=== PATIENT | female | born 1995 ===

== ENCOUNTER → 2021-01-30 12:42 | Outpatient (BNVA) | payer OTHER, SELFPAY | PROVIDERS: Visit Provider Physician Assistant | DX: E66.01 Morbid (severe) obesity due to excess calories (principal); Z68.41 Body mass index [BMI] 40.0-44.9, adult | CPT/HCPCS: 99202 ==

== ENCOUNTER → 2021-02-27 08:13 | Outpatient (BNVA) | payer OTHER, SELFPAY | PROVIDERS: Visit Provider Dietitian, Registered ==

== ENCOUNTER 2021-03-01 12:15 | Outpatient (REF) | payer OTHER, SELFPAY ==
--- NOTE | ~2021-03-01 | XR_ITS ---
EXAMINATION: XR CHEST CLINICAL INFORMATION: Moderate/severe obesity excess calories COMPARISON: None TECHNIQUE: 2 views of the chest were obtained. FINDINGS: No significant abnormality is noted involving the heart, lungs, mediastinum, bony thorax or soft tissues. XR/XR chest 2V IMPRESSION: Unremarkable chest exam.
--- NOTE | 2021-03-01 12:25 | ECG_ITS ---
Test Reason : OBESITY Blood Pressure : / mmHG Vent. Rate : 087 BPM Atrial Rate : 087 BPM P-R Int : 146 ms QRS Dur : 088 ms QT Int : 370 ms P-R-T Axes : 056 009 023 degrees QTc Int : 445 ms Normal sinus rhythm Minimal voltage criteria for LVH, may be normal variant Borderline ECG No previous ECGs available Referred By: Johanne Fontanez Electronically Signed By:RACHELE CADET MD
[2021-03-01 13:38] LABS: MANUAL DIFF FLAG NO
[2021-03-01 13:44] LABS: Basophils Percent Auto 0.2 % (0-2); Eosinophils Absolute Auto 0.1 X10*3/uL (0.0-0.4); Eosinophils Percent Auto 1.3 % (0-4); Hematocrit 36.1 % (37-47); Hemoglobin 11.3 g/dl (12.0-16.0); Imm Gran Abs Auto 0.05 X10*3/uL (0.00-0.03); Imm Gran Pct Auto 0.5 % (0.0-0.4); Lymphocytes Absolute Auto 2.6 X10*3/uL (1.2-4.9); Lymphocytes Percent Auto 26.8 % (20-40); Mean Corpuscular HGB Conc 31.3 g/dl (31.0-35.0); Mean Corpuscular Hemoglobin 25.1 pg (27.0-33.0); Mean Corpuscular Volume 80.2 fL (80-98); Mean Platelet Volume 11.3 fL (9.4-12.3); Monocytes Absolute Auto 0.6 X10*3/uL (0.1-1.2); Monocytes Percent Auto 6.6 % (2-11); Neutrophils Absolute Auto 6.3 X10*3/uL (2.0-8.3); Neutrophils Percent Auto 64.6 % (45-73); Platelet Count 253 X10*3/uL (160-400); Red Cell Distribution Width 16.5 % (11.0-16.0); White Blood Count 9.7 X10*3/uL (4.8-10.8)
[2021-03-01 14:54] LABS: Folate 14.7 ng/mL (> or = 4.0); Vitamin B12 441 pg/mL (200-900)
[2021-03-01 16:12] LABS: Estimated Average Glucose 100 mg/dL; Hemoglobin A1c % 5.1 %
[2021-03-01 16:47] LABS: TSH reflex Free T4 1.49 uIU/mL (0.32-4.0); Vitamin D 25-OH Total 12.7 ng/mL (>30)
[2021-03-01 16:54] LABS: Alanine Aminotransferase 13 U/L (0-31); Albumin Level 3.6 g/dL (3.5-5.0); Alkaline Phosphatase 123 U/L (39-117); Anion Gap 10 (12-20); Aspartate Amino Transferase 21 U/L (5-31); Bilirubin Total 0.3 mg/dL (0.0-1.0); Blood Urea Nitrogen 11 mg/dL (9-16); C Reactive Protein 4.68 mg/dL (< or = 0.50); Calcium 8.8 mg/dL (8.4-10.2); Carbon Dioxide 25 mmol/L (22-29); Chloride 107 mmol/L (96-108); Cholesterol 176 mg/dL; Estimated Glomerular Filt Rate > 60; Glucose Fasting 83 mg/dL (60-99); HDL Cholesterol 56 mg/dL; Iron 20 mcg/dL (30-160); LDL Cholesterol Calculated 100 mg/dl; Percent Iron Saturation 6 % (15-50); Sodium 138 mmol/L (135-145); Total Iron Binding Capacity 361 mcg/dL (228-428); Total Protein 7.3 g/dL (6.5-8.0); Triglycerides 100 mg/dL; Unsaturated Iron Binding 341 ug/dL
[2021-03-01 17:22] LABS: Ferritin 29 ng/mL (10-122)
[2021-03-02 13:06] LABS: Insulin Level Total 17.4 uIU/mL
[2021-03-02 15:11] LABS: H Pylori Breath Test NOT DETECTED (NOT DETECTED)
[2021-03-02 17:12] LABS: Calcium (PTHI) 8.6 mg/dL (8.6-10.2); PTHI 73 pg/mL (14-64)
[2021-03-03 16:46] LABS: Zinc 52 mcg/dL (60-130)
[2021-03-05 13:21] LABS: Vitamin B1 8 nmol/L (8-30)
[2021-03-06 15:27] LABS: Vitamin A 27 mcg/dL (38-98)
== END 2021-03-01 12:16 | disposition home or self-care (01) ==
LOC: HO.LAB 12:15
PROVIDERS: Visit Provider Physician Assistant
DX: E66.01 Morbid (severe) obesity due to excess calories (principal); R06.02 Shortness of breath
CPT/HCPCS: 36415; 71046; 80053; 80061; 82306; 82607; 82728; 82746; 83013; 83036; 83525; 83540; 83970; 84425; 84443; 84590; 84630; 85025; 86140; 93005; 99211

== ENCOUNTER → 2021-03-07 08:10 | Outpatient (BNVA) | payer OTHER, SELFPAY | PROVIDERS: Visit Provider Dietitian, Registered | DX: E66.01 Morbid (severe) obesity due to excess calories (principal) | CPT/HCPCS: 97802 ==

== ENCOUNTER → 2021-03-09 09:12 | Outpatient (BNVA) | payer OTHER, SELFPAY | PROVIDERS: Visit Provider Physician Assistant | DX: E66.01 Morbid (severe) obesity due to excess calories (principal); Z68.41 Body mass index [BMI] 40.0-44.9, adult | CPT/HCPCS: 99212 ==

== ENCOUNTER → 2021-04-14 08:13 | Outpatient (BNVA) | payer OTHER, SELFPAY | PROVIDERS: Visit Provider Dietitian, Registered | DX: E66.01 Morbid (severe) obesity due to excess calories (principal); Z68.41 Body mass index [BMI] 40.0-44.9, adult | CPT/HCPCS: 97803; 99212 ==

== ENCOUNTER → 2021-05-16 08:01 | Outpatient (BNVA) | payer OTHER, SELFPAY | PROVIDERS: Visit Provider Dietitian, Registered ==

== ENCOUNTER → 2021-06-28 12:46 | Outpatient (BNVA) | payer OTHER, SELFPAY | PROVIDERS: Visit Provider Physician Assistant Surgical | DX: E66.01 Morbid (severe) obesity due to excess calories (principal); Z68.41 Body mass index [BMI] 40.0-44.9, adult | CPT/HCPCS: 99212 ==

== ENCOUNTER 2021-12-26 09:56 | Outpatient (REF) | payer OTHER, SELFPAY ==
[2021-12-26 10:15] LABS: MANUAL DIFF FLAG NO
[2021-12-26 10:30] LABS: Basophils Percent Auto 0.2 % (0-2); Eosinophils Absolute Auto 0.2 X10*3/uL (0.0-0.4); Hematocrit 36.7 % (37.0-47.0); Hemoglobin 11.3 g/dl (12.0-16.0); Imm Gran Abs Auto 0.05 X10*3/uL (0.00-0.03); Imm Gran Pct Auto 0.5 % (0.0-0.4); Lymphocytes Absolute Auto 3.2 X10*3/uL (1.2-4.9); Lymphocytes Percent Auto 31.5 % (20-40); Mean Corpuscular HGB Conc 30.8 g/dl (31.0-35.0); Mean Corpuscular Hemoglobin 25.2 pg (27.0-33.0); Mean Corpuscular Volume 81.7 fL (80.0-98.0); Mean Platelet Volume 11.1 fL (9.4-12.3); Monocytes Absolute Auto 0.6 X10*3/uL (0.1-1.2); Monocytes Percent Auto 5.7 % (2-11); Neutrophils Absolute Auto 6.1 x10*3/uL (2.0-8.3); Neutrophils Percent Auto 60.1 % (45-73); Platelet Count 271 X10*3/uL (160-400); Red Blood Count 4.49 X10*6/uL (4.20-5.50); Red Cell Distribution Width 15.7 % (11.0-16.0); White Blood Count 10.1 X10*3/uL (4.8-10.8)
[2021-12-26 11:05] LABS: Alanine Aminotransferase 15 U/L (0-31); Albumin Level 3.7 g/dL (3.5-5.0); Alkaline Phosphatase 110 U/L (39-117); Anion Gap 9 (12-20); Aspartate Amino Transferase 17 U/L (5-31); Bilirubin Total 0.3 mg/dL (0.0-1.0); Blood Urea Nitrogen 11 mg/dL (9-16); Calcium 8.8 mg/dL (8.4-10.2); Carbon Dioxide 27 mmol/L (22-29); Chloride 107 mmol/L (96-108); Cholesterol 183 mg/dL; Estimated Glomerular Filt Rate > 60; Glucose Random 89 mg/dL (60-115); HDL Cholesterol 46 mg/dL; LDL Cholesterol Calculated 116 mg/dl; Potassium 4.1 mmol/L (3.3-5.1); Sodium 139 mmol/L (135-145); Total Protein 7.3 g/dL (6.5-8.0); Triglycerides 105 mg/dL
[2021-12-26 11:14] LABS: Thyroid Stimulating Hormone 1.47 uIU/mL (0.32-4.0)
== END 2021-12-26 09:57 | disposition home or self-care (01) ==
LOC: HO.LAB 09:56
PROVIDERS: PCP Internal Medicine; Visit Provider Internal Medicine
DX: E66.01 Morbid (severe) obesity due to excess calories (principal); I10 Essential (primary) hypertension
CPT/HCPCS: 36415; 80053; 80061; 84443; 85025

== ENCOUNTER → 2022-02-28 09:43 | Outpatient (BNVA) | payer OTHER, SELFPAY | PROVIDERS: PCP Internal Medicine; Visit Provider Physician Assistant Surgical | DX: E66.01 Morbid (severe) obesity due to excess calories (principal); Z68.41 Body mass index [BMI] 40.0-44.9, adult | CPT/HCPCS: 99211 ==

== ENCOUNTER → 2022-09-11 10:16 | Outpatient (BNVA) | payer MEDICAID, SELFPAY | PROVIDERS: PCP Internal Medicine; Referring Provider Internal Medicine; Visit Provider Physician Assistant Surgical | DX: Z11.0 Encounter for screening for intestinal infectious diseases (principal); E66.01 Morbid (severe) obesity due to excess calories; Z68.41 Body mass index [BMI] 40.0-44.9, adult | CPT/HCPCS: 83013; 99211; 99212 ==

== ENCOUNTER 2022-09-11 15:19 | Outpatient (REF) | payer MEDICAID, SELFPAY ==
[2022-09-14 14:47] LABS: H Pylori Breath Test Negative (Negative)
== END 2022-09-11 15:20 | disposition home or self-care (01) ==
LOC: HO.LNP 15:19
PROVIDERS: Visit Provider Physician Assistant Surgical
DX: E66.01 Morbid (severe) obesity due to excess calories (principal)
CPT/HCPCS: 83013

== ENCOUNTER 2022-10-01 12:00 | Outpatient (REF) | payer MEDICAID, SELFPAY ==
[2022-10-01 12:21] LABS: MANUAL DIFF FLAG NO
[2022-10-01 12:47] LABS: Basophils Percent Auto 0.2 % (0-2); Eosinophils Absolute Auto 0.1 X10*3/uL (0.0-0.4); Eosinophils Percent Auto 1.5 % (0-4); Hematocrit 38.8 % (37.0-47.0); Hemoglobin 12.2 g/dl (12.0-16.0); Imm Gran Abs Auto 0.01 X10*3/uL (0.00-0.03); Imm Gran Pct Auto 0.1 % (0.0-0.4); Lymphocytes Absolute Auto 3.9 X10*3/uL (1.2-4.9); Lymphocytes Percent Auto 44.7 % (20-40); Mean Corpuscular HGB Conc 31.4 g/dl (31.0-35.0); Mean Corpuscular Volume 82.6 fL (80.0-98.0); Monocytes Absolute Auto 0.5 X10*3/uL (0.1-1.2); Monocytes Percent Auto 5.9 % (2-11); Neutrophils Absolute Auto 4.1 x10*3/uL (2.0-8.3); Neutrophils Percent Auto 47.6 % (45-73); Platelet Count 249 X10*3/uL (160-400); Red Cell Distribution Width 14.2 % (11.0-16.0); White Blood Count 8.7 X10*3/uL (4.8-10.8)
[2022-10-01 13:19] LABS: Alanine Aminotransferase 15 U/L (0-31); Albumin Level 3.9 g/dL (3.5-5.0); Alkaline Phosphatase 109 U/L (39-117); Anion Gap 11 (12-20); Aspartate Amino Transferase 17 U/L (5-31); Bilirubin Total 0.4 mg/dL (0.0-1.0); Blood Urea Nitrogen 16 mg/dL (9-16); C Reactive Protein 1.75 mg/dL (< or = 0.50); Calcium 9.3 mg/dL (8.4-10.2); Carbon Dioxide 27 mmol/L (22-29); Chloride 104 mmol/L (96-108); Cholesterol 170 mg/dL; Estimated Glomerular Filt Rate > 60; Glucose Random 87 mg/dL (60-115); HDL Cholesterol 42 mg/dL; Iron 28 mcg/dL (30-160); LDL Cholesterol Calculated 108 mg/dl; Percent Iron Saturation 10 % (15-50); Potassium 4.1 mmol/L (3.3-5.1); Sodium 138 mmol/L (135-145); Total Iron Binding Capacity 285 mcg/dL (228-428); Total Protein 7.5 g/dL (6.5-8.0); Triglycerides 104 mg/dL; Unsaturated Iron Binding 257 ug/dL
[2022-10-01 13:22] LABS: Estimated Average Glucose 100 mg/dL; Hemoglobin A1c % 5.1 %
[2022-10-01 13:30] LABS: Ferritin 37 ng/mL (10-122); Insulin 12 uU/mL (2-29); TSH reflex Free T4 1.58 uIU/mL (0.32-4.0); Vitamin D 25-OH Total 13.8 ng/mL (>30)
[2022-10-01 13:46] LABS: Folate 9.6 ng/mL (> or = 4.0); Vitamin B12 724 pg/mL (200-900)
[2022-10-02 12:58] LABS: Calcium (PTHI) 9.2 mg/dL (8.6-10.2); PTHI 82 pg/mL (16-77)
[2022-10-05 17:47] LABS: Zinc 59 mcg/dL (60-130)
[2022-10-06 13:09] LABS: Vitamin B1 7 nmol/L (8-30)
[2022-10-06 17:43] LABS: Vitamin A 30 mcg/dL (38-98)
== END 2022-10-01 12:01 | disposition home or self-care (01) ==
LOC: HO.LAB 12:00
PROVIDERS: Visit Provider Physician Assistant Surgical
DX: E66.01 Morbid (severe) obesity due to excess calories (principal)
CPT/HCPCS: 36415; 80053; 80061; 82306; 82607; 82728; 82746; 83036; 83525; 83540; 83970; 84425; 84443; 84590; 84630; 85025; 86140

== ENCOUNTER → 2022-10-02 09:43 | Outpatient (BNVA) | payer MEDICAID, SELFPAY | PROVIDERS: PCP Internal Medicine; Visit Provider Physician Assistant Surgical | DX: E66.01 Morbid (severe) obesity due to excess calories (principal); Z68.41 Body mass index [BMI] 40.0-44.9, adult | CPT/HCPCS: 99212 ==

== ENCOUNTER → 2022-10-03 09:49 | Outpatient (BNVA) | payer MEDICAID, SELFPAY | PROVIDERS: PCP Internal Medicine; Referring Provider Physician Assistant Surgical; Visit Provider Dietitian, Registered | DX: E66.01 Morbid (severe) obesity due to excess calories (principal); Z68.41 Body mass index [BMI] 40.0-44.9, adult | CPT/HCPCS: 97802 ==

== ENCOUNTER 2022-12-15 22:35 | Emergency (ER) | payer MEDICAID, SELFPAY ==
--- NOTE | ~2022-12-15 | XR_ITS ---
EXAMINATION: XR CHEST CLINICAL INFORMATION: Cough COMPARISON: 03/01/2021 TECHNIQUE: 2 views of the chest were obtained. FINDINGS: The lungs are well expanded. There is no focal consolidation, edema, or effusion. No pneumothorax. The cardiomediastinal silhouette is within normal limits. No acute osseous abnormality. XR/XR chest 2V IMPRESSION: Clear lungs.
[2022-12-15 22:40] VITALS: BP 138/81; PULSE 134; RESP 20; TEMP 37.9; O2SAT 98; BMI 42.3
[2022-12-15 23:16] LABS: COVID-19 Test Negative (Negative); IDNOW Serial# 08D9AD1C; IDNOW Serial# BCCEAD1C; Influenza A Negative (Negative); Influenza B2 Negative (Negative)
--- NOTE | 2022-12-15 23:32 | ED.URI ---
HPI - URI/Sore Throat General Chief Complaint: Upper Respiratory Symptoms Stated Complaint: sore throat Time Seen by Provider: 12/15/22 23:25 Source: patient Mode of arrival: ambulatory Limitations: no limitations History of Present Illness HPI Narrative: Patient comes to the emergency room complaining of coughing and sore throat for 2 days, complaining of low-grade fever. Patient denies any sick contacts. Denies vomiting or diarrhea, no chest pain or shortness of breath. Related Data Home Medications Medication Instructions Recorded Confirmed ibuprofen 200 mg tablet (Advil) 200 mg PO Q6H PRN 01/30/21 10/02/22 Previous Rx's Medication Instructions Recorded cholecalciferol (vitamin D3) 125 125 mcg PO DAILY #90 caps 10/01/22 mcg (5,000 unit) capsule ferrous sulfate 324 mg (65 mg 324 mg PO DAILY #90 tabs 10/01/22 iron) tablet,delayed release thiamine HCl (vitamin B1) 100 mg 100 mg PO DAILY #90 tabs 10/08/22 tablet vitamin A palmitate 3,000 mcg 10,000 unit PO DAILY #90 caps 10/08/22 (10,000 unit) capsule zinc gluconate 10 mg lozenges 10 mg PO DAILY #100 ea 10/08/22 azithromycin 250 mg tablet 250 mg PO DAILY 4 days #4 tabs 12/15/22 Allergies Allergy/AdvReac Type Severity Reaction Status Date / Time Penicillins Allergy Severe Anaphylaxis Verified 10/02/22 09:56 Review of Systems Review of Systems: Constitutional : No Weight loss, No Fever, No Chills, No Night Sweats, No Fatigue, No Malaise ENT/Mouth : No Hearing loss, No Ear Pain, No Nasal Congestion, No Sinus Pain, No Hoarseness, complaining of sore throat, No Rhinorrhea, No Swallowing Difficulty Eyes: No Eye Pain, No Swelling, No Redness, No Foreign Body, No Discharge, No Vision Changes Cardiovascular : No Chest Pain, No SOB, No Dyspnea on Exertion, No Orthopnea, No Edema, No Palpitations Respiratory : Complaining of Cough, No Sputum, No Wheezing, No Smoke Exposure, No Dyspnea Gastrointestinal : No Nausea, No Vomiting, No Diarrhea, No Constipation, No abdominal Pain, No Hematochezia, No Melena Genitourinary : no irregular bleeding, No Dysuria, No Urinary Frequency, No Hematuria, No Urinary Incontinence, No Urgency, No Flank Pain, No Urinary Flow Changes, No Hesitancy Musculoskeletal : No joint pain, No Myalgias, No Joint Swelling Skin : No Skin Lesions, No rash Neuro : No Weakness, No Numbness, No Paresthesias, No Loss of Consciousness, No Dizziness, No Headache Psych : No Anxiety/Panic, No Depression, No SI/HI/AH/VH, No Social Issues, Heme/Lymph: No Bruising, No Bleeding,No Lymphadenopathy Endocrine : No Polyuria, No Polydipsia, No Temperature Intolerance [facility] Past Medical History Medical History BMI 40.0-44.9, adult Morbid obesity Vitamin A deficiency Vitamin B12 deficiency Vitamin D deficiency Surgical History Hx of section Family History Family History Mother No problems noted. Father No problems noted. Sister No problems noted. Sister No problems noted. Son No problems noted. Son No problems noted. Daughter No problems noted. Social History Social History Alcohol intake: former Patient Tobacco Use Status: Never used Tobacco Physical Exam Vital Signs: Vital Signs: Last Vital Signs Temp 100.3 F 12/15/22 22:40 Pulse 134 H 12/15/22 22:40 Resp 20 12/15/22 22:40 BP 138/81 12/15/22 22:40 Pulse Ox 98 12/15/22 22:40 O2 Del Method Room Air 12/15/22 22:40 BMI result Body Mass Index 42.3 Const: Other: Appearance: Alert. Oriented X3. No acute distress. Eyes: Pupils equal, round and reactive to light. ENT: Erythematous oropharynx , no exudates, no visualized abscess is Neck: Normal inspection. Neck supple. No lymph nodes noted. No crepitus CVS: Normal heart rate and rhythm. Pulses normal. Normal S1 and S2 Respiratory: No respiratory distress. Breath sounds normal. No Wheezing. No rales Abdomen: Soft and nontender. No rigidity. No distention. Skin: Skin warm and dry. Normal skin color. Normal skin turgor. Extremities: No lower extremity edema. No Lacerations. No Rash Neuro: Oriented X 3. No motor deficit. No sensory deficit. Moving all extremities. No slurred speech. CN 2 through 12 grossly intact Psych: calm, cooperative, normal affect Medical Decision Making Medical Decision Making [facility] Narrative: -patient tested negative for influenza and COVID. Chest x-ray clear, no infiltrates. -Monospot test and rapid strep test pending. -patient tested positive for strep. Patient was given the 1st dose of antibiotics in the emergency room, patient has anaphylaxis penicillin, given azithromycin. Also for symptomatic relief, given p.o. Decadron and viscous lidocaine. Differential Diagnosis Differential Diagnoses: The differential diagnosis associated with the presentation includes (COVID, influenza, strep, viral pharyngitis) Lab Data [facility] Lab Attestation statement: I reviewed the patient's lab results. Labs: Lab Results 12/15/22 12/15/22 12/15/22 Range/Units 22:53 22:53 23:36 COVID-19 (RACHEAL) Negative (Negative) COVID-19 Clin Com See Note Influenza Type A (SOURAV) Negative (Negative) Influenza Type B (SOURAV) Negative (Negative) Influenza A & B Note See Note S. pyogenes GrpA SOURAV Positive A (Negative) Independent Interpretation I performed an independent interpretation of an: Plain X-Ray (Interpretation of chest x-ray: No pneumonia) Radiology Impression Discussion of test interpretation with radiology: I have reviewed the radiologist's reading. Radiologist Impression: FINDINGS: The lungs are well expanded. There is no focal consolidation, edema, or effusion. No pneumothorax. The cardiomediastinal silhouette is within normal limits. No acute osseous abnormality. XR/XR chest 2V IMPRESSION: Clear lungs. ? Discharge Plan Discharge Clinical Impression: Acute streptococcal pharyngitis Patient Disposition: Home, Self-Care Instructions: Strep Throat (ED) Additional Instructions: Please follow-up with your primary care physician tomorrow. If you have any worsening or new symptoms, please return to the emergency room or call 911 Prescriptions: New azithromycin 250 mg tablet 250 mg PO DAILY 4 Days Qty: 4 0RF Rx Instructions: start on day 2 of therapy No Action cholecalciferol (vitamin D3) 125 mcg (5,000 unit) capsule 125 mcg PO DAILY Qty: 90 1RF ferrous sulfate 324 mg (65 mg iron) tablet,delayed release (DR/EC) 324 mg PO DAILY Qty: 90 2RF thiamine HCl (vitamin B1) 100 mg tablet 100 mg PO DAILY Qty: 90 0RF vitamin A palmitate 10,000 unit capsule 10,000 unit PO DAILY Qty: 90 0RF zinc gluconate 10 mg lozenge 10 mg PO DAILY Qty: 100 0RF ibuprofen [Advil] 200 mg tablet 200 mg PO Q6H PRN Stand Alone Forms: Work/School Release
[2022-12-15 23:47] LABS: IDNOW Serial# 6674DD1D; Strep A Nucleic Acid Positive (Negative)
[2022-12-15] MEDS: dexAMETHasone 4 MG TABLET PO (23:59)
[2022-12-15] MEDS: Azithromycin 500 MG TABLET PO (23:59)
[2022-12-16] MEDS: Lidocaine HCl Viscous 2 % 15 ML SOLUTION MUCOUS MEM
[2022-12-16 00:02] LABS: Monotest Negative (Negative)
[2022-12-16 00:08] VITALS: BP 126/62; PULSE 106; RESP 18; TEMP 37.2; O2SAT 97
== END 2022-12-16 00:11 | disposition home or self-care (01) ==
LOC: HO.ED 12-16 00:06
PROVIDERS: Physician Assistant; Emergency Provider Emergency Medicine; PCP Internal Medicine
DX: J02.0 Streptococcal pharyngitis (principal); R05.9 Cough, unspecified; R50.9 Fever, unspecified; Z79.899 Other long term (current) drug therapy; Z20.822 Contact with and (suspected) exposure to COVID-19; Z20.828 Contact with and (suspected) exposure to other viral communicable diseases
CPT/HCPCS: 36415; 71046; 86308; 87502; 87635; 87651; 99284; J8540

== ENCOUNTER 2023-12-13 18:01 | Emergency (ER) | payer OTHER, SELFPAY ==
--- NOTE | ~2023-12-13 | CT_ITS ---
EXAMINATION: CT ABDOMEN AND PELVIS WITH CONTRAST CLINICAL INFORMATION: Right upper quadrant and right lower quadrant tenderness. COMPARISON: None available. TECHNIQUE: Multidetector volumetric images were obtained from the superior aspect of the liver through the pubic symphysis following administration 85 mL of Omnipaque 350 intravenous contrast. Sagittal and coronal reformatted images were obtained on the technologist's workstation. Oral contrast: No This CT examination was performed using dose optimization techniques as appropriate, variously including the following: *Automated exposure control *Adjustment of mA and/or kV according to patient size (this includes techniques or standardized protocols for targeted exams where dose is matched to indication/reason for exam; i.e. extremities or head) *Use of iterative reconstruction technique DLP: 1202 mGy-cm FINDINGS: LUNG BASES: The visualized lung bases are unremarkable. LIVER, GALLBLADDER, AND BILIARY TREE: The liver is of mild diminished attenuation and enlarged measuring up to 22 cm. No focal liver lesions are seen. There is no intrahepatic biliary duct dilatation. The gallbladder is unremarkable with no evidence of radiopaque gallstones, gallbladder wall thickening, or obvious pericholecystic inflammatory changes. PANCREAS: Unremarkable. SPLEEN: Unremarkable. ADRENAL GLANDS: Unremarkable. KIDNEYS AND URETERS: The kidneys are normal in size, shape, and attenuation. No hydronephrosis, hydroureter, or calculi seen. No perinephric stranding. BLADDER: Unremarkable. GASTROINTESTINAL TRACT: The small and large bowel are unremarkable. The appendix is unremarkable. ABDOMINAL WALL: No significant hernia is appreciated. LYMPH NODES: Normal. VASCULAR: Unremarkable. PELVIC VISCERA: Unremarkable. OSSEOUS STRUCTURES: Unremarkable. CT/CT abdomen pelvis w IV con IMPRESSION: Enlarged fatty liver. No other significant abnormality identified. Fleischner guidelines were followed.
[2023-12-13 18:23] VITALS: BP 149/78; PULSE 84; RESP 14; TEMP 37.1; BMI 40.9
--- NOTE | 2023-12-13 18:25 | ED_ITS ---
HPI - Abdominal Pain General Chief Complaint: Abdominal Pain Stated Complaint: stomach pain since saturday Time Seen by Provider: 12/13/23 21:16 History of Present Illness HPI narrative: The patient is a 28-year-old woman who has been having abdominal pain for about 5 or 6 days. She says it all started after she ate a fish leopoldo last Saturday. She says that since then she has had generalized abdominal pains which wax and wane also feels that she has not been able to have a bowel movement. She does not know if she has had a fever. No significant nausea or vomiting. Related Data Home Medications Medication Instructions Recorded Confirmed ibuprofen 200 mg tablet (Advil) 200 mg PO Q6H PRN 01/30/21 10/02/22 Previous Rx's Medication Instructions Recorded cholecalciferol (vitamin D3) 125 125 mcg PO DAILY #90 caps 10/01/22 mcg (5,000 unit) capsule ferrous sulfate 324 mg (65 mg 324 mg PO DAILY #90 tabs 10/01/22 iron) tablet,delayed release thiamine HCl (vitamin B1) 100 mg 100 mg PO DAILY #90 tabs 10/08/22 tablet vitamin A palmitate 3,000 mcg 10,000 unit PO DAILY #90 caps 10/08/22 (10,000 unit) capsule zinc gluconate 10 mg lozenges 10 mg PO DAILY #100 ea 10/08/22 azithromycin 250 mg tablet 250 mg PO DAILY 4 days #4 tabs 12/15/22 omeprazole 40 mg capsule,delayed 40 mg PO DAILY #30 caps 12/14/23 release Allergies Allergy/AdvReac Type Severity Reaction Status Date / Time Penicillins Allergy Severe Anaphylaxis Verified 10/02/22 09:56 Review of Systems Review of Systems Yes all other systems are reviewed and are negative [facility] Past Medical History Medical History BMI 40.0-44.9, adult Morbid obesity Vitamin A deficiency Vitamin B12 deficiency Vitamin D deficiency Surgical History Hx of section Family History Family History Mother No problems noted. Father No problems noted. Sister No problems noted. Sister No problems noted. Son No problems noted. Son No problems noted. Daughter No problems noted. Social History Social History Alcohol intake: former Patient Tobacco Use Status: Never used Tobacco Physical Exam ED Vital Signs: Vital Signs - 24 hr 12/13/23 18:23 12/13/23 21:25 12/13/23 23:58 Temperature 98.7 F 98.2 F 98.2 F Pulse Rate 84 83 96 Respiratory Rate 14 18 18 Blood Pressure 149/78 H 142/81 H 141/77 H Pulse Oximetry 98 99 Oxygen Delivery Method Room Air Room Air Room Air 12/14/23 01:08 Temperature 98.2 F Pulse Rate 96 Respiratory Rate 18 Blood Pressure 141/77 H Pulse Oximetry 99 Oxygen Delivery Method Room Air BMI result Body Mass Index 40.9 Const Other: The patient is awake, alert, pleasant, cooperative. She looks mildly uncomfortable but not acutely toxic. HENMT Other: Face is symmetrical. Mucous membranes moist. Eyes Other: Pupils are round equal, conjunctivae are clear, extraocular movements intact Neck Other: Moving the neck easily Resp Effort & Inspection: normal respiratory effort Auscultation: clear to auscultation bilaterally Cardio Rate: regular rate Rhythm: regular rhythm Heart sounds: S1 normal heart sound present and S2 normal heart sound present GI Other: Right lower and right upper quadrant tenderness. No definite rebound but there seemed to be some subtle guarding. General: Yes no CVA tenderness Back/Spine/Pelvis Back: no CVA tenderness Skin Other: Skin is dry and unremarkable Neuro Other: The patient is awake, alert, pleasant, cooperative. Speech is clear, face is symmetrical, she moves extremities symmetrically, she seems grossly neurologically intact. Extrem Other: No calf swelling or tenderness, Course Course Course Narrative: This is a rapid medical exam: Additional HPI, ROS, PE not included below will be deferred to primary provider. Abdominal pain since Saturday after eating. Reports difficulty with moving her bowels with no bowel movements since Saturday. Medical Decision Making Medical Decision Making [facility] Narrative: The patient is a very pleasant 28-year-old who presents with about 5 or 6 days of abdominal pain fairly tender on exam. The patient had a slightly elevated white count. Chemistries show an unremarkable basic metabolic panel and liver function. CRP mildly elevated. A CT scan of the abdomen and pelvis shows an enlarged fatty liver but no acute findings. The patient was treated symptomatically. She seemed to feel better. She looked well. She will be discharged instructions to follow up with her regular doctor or return if worse. She was prescribed omeprazole. Lab Data 12/13/23 18:53 12/13/23 18:53 Labs: Lab Results 12/13/23 Range/Units 18:53 WBC 12.4 H (4.8-10.8) X10*3/uL RBC 4.87 (4.20-5.50) X10*6/uL Hgb 12.9 (12.0-16.0) g/dl Hct 40.1 (37.0-47.0) % MCV 82.3 (80.0-98.0) fL MCH 26.5 L (27.0-33.0) pg MCHC 32.2 (31.0-35.0) g/dl RDW 15.1 (11.0-16.0) % Plt Count 305 (160-400) X10*3/uL MPV 11.0 (9.4-12.3) fL Immature Gran % (Auto) 0.3 (0.0-0.4) % Neut % (Auto) 54.9 (45-73) % Lymph % (Auto) 35.5 (20-40) % [place] % (Auto) 7.5 (2-11) % Eos % (Auto) 1.5 (0-4) % Baso % (Auto) 0.3 (0-2) % Lymph # (Auto) 4.4 (1.2-4.9) X10*3/uL [place] # (Auto) 0.9 (0.1-1.2) X10*3/uL Eos # (Auto) 0.2 (0.0-0.4) X10*3/uL Baso # (Auto) 0.0 (0.0-0.2) X10*3/uL Abs Immat Gran (auto) 0.04 H (0.00-0.03) X10*3/uL Absolute Neuts (auto) 6.8 (2.0-8.3) x10*3/uL Absolute Nucleated RBC 0.000 (0.0-0.012) X10*3/uL Nucleated RBC % (auto) 0.0 (0.0-0.2) /100WBC Sodium 139 (135-145) mmol/L Potassium 4.0 (3.3-5.1) mmol/L Chloride 102 (96-108) mmol/L Carbon Dioxide 28 (22-29) mmol/L Anion Gap 13 (12-20) BUN 11 (9-16) mg/dL Creatinine 0.79 (0.5-1.4) mg/dL Estim Creat Clear Calc 129.5 Estimated GFR > 60 Random Glucose 100 (60-115) mg/dL Calcium 9.2 (8.4-10.2) mg/dL Magnesium 1.9 (1.6-2.6) mg/dL Total Bilirubin 0.3 (0.0-1.0) mg/dL AST 28 (5-31) U/L ALT 28 (0-31) U/L Alkaline Phosphatase 129 H (39-117) U/L C-Reactive Protein 4.02 H (< or = 0.50) mg/dL Total Protein 8.4 H (6.5-8.0) g/dL Albumin 3.9 (3.5-5.0) g/dL Beta HCG, Quant < 2 mIU/mL Urine Color Yellow Urine Appearance Clear Urine pH 8.0 (5.0-9.0) Ur Specific [place] 1.025 (1.005-1.025) Urine Protein Negative (Neg-Trace) mg/dL Urine Glucose (UA) Negative (Negative) mg/dL Urine Ketones Trace (Negative) mg/dL Urine Blood Negative (Negative) Urine Nitrite Negative (Negative) Ur Leukocyte Esterase Negative (Negative) Urine RBC 0-2 (0-2) /HPF Urine WBC 0-5 (0-5) /HPF Ur Squamous Epith Cells 0-2 (0-2) /HPF Urine Bacteria None Seen (None Seen) Hyaline Casts 0-2 (0-2) /LPF Influenza Type A (PCR) NEGATIVE (Negative) Influenza Type B (PCR) NEGATIVE (Negative) RSV RNA Qual (PCR) NEGATIVE (Negative) SARS-CoV-2 RNA (RT-PCR) NEGATIVE (Negative) Medications Administered Discontinued Medications Generic Name Dose Route Start Last Admin Trade Name Freq PRN Reason Stop Dose Admin Famotidine 20 mg 12/13/23 21:21 12/13/23 21:41 Famotidine/Pf 20 Mg/2 Ml Vial IVPUSH 12/13/23 21:22 20 mg ONCE ONE Administration Sodium Chloride 1,000 mls @ 999 mls/hr 12/13/23 21:30 12/13/23 22:43 Ns IV 12/13/23 22:30 Infused .Q1H1M CURLY Infusion Iohexol 100 ml 12/13/23 22:18 12/13/23 22:18 Iohexol 350 Mg/Ml 100 Ml Infus..Btl IV 12/13/23 22:19 85 ml ONCE ONE Administration Discharge Plan Discharge Clinical Impression: Abdominal pain Patient Disposition: Home, Self-Care Instructions: Gastritis (ED) Additional Instructions: Your testing in the emergency room today does not show any acutely dangerous process. I suspect your pain may be coming from irritation from stomach acid. We call this condition gastritis. Please read the accompanying information. I have sent a prescription for medication called omeprazole to your pharmacy. This medication helps reduce stomach acid production. I hope this will help your symptoms. Please keep your upcoming appointment with your new doctor. Return to the emergency room if significantly worse. Prescriptions: New omeprazole 40 mg capsule,delayed release(DR/EC) 40 mg PO DAILY Qty: 30 0RF No Action cholecalciferol (vitamin D3) 125 mcg (5,000 unit) capsule 125 mcg PO DAILY Qty: 90 1RF ferrous sulfate 324 mg (65 mg iron) tablet,delayed release (DR/EC) 324 mg PO DAILY Qty: 90 2RF thiamine HCl (vitamin B1) 100 mg tablet 100 mg PO DAILY Qty: 90 0RF vitamin A palmitate 10,000 unit capsule 10,000 unit PO DAILY Qty: 90 0RF zinc gluconate 10 mg lozenge 10 mg PO DAILY Qty: 100 0RF azithromycin 250 mg tablet 250 mg PO DAILY 4 Days Qty: 4 0RF Rx Instructions: start on day 2 of therapy ibuprofen [Advil] 200 mg tablet 200 mg PO Q6H PRN Referrals: Julieta Rivera MD [Physician] - (gastritis) Interventions: ED Discharge Assessment Last Done: 12/14/23 01:08 Discharge Date/Time: 12/14/23 01:17
[2023-12-13 19:03] LABS: MANUAL DIFF FLAG NO
[2023-12-13 19:05] LABS: Basophils Percent Auto 0.3 % (0-2); Eosinophils Absolute Auto 0.2 X10*3/uL (0.0-0.4); Eosinophils Percent Auto 1.5 % (0-4); Hematocrit 40.1 % (37.0-47.0); Hemoglobin 12.9 g/dl (12.0-16.0); Imm Gran Abs Auto 0.04 X10*3/uL (0.00-0.03); Imm Gran Pct Auto 0.3 % (0.0-0.4); Lymphocytes Absolute Auto 4.4 X10*3/uL (1.2-4.9); Lymphocytes Percent Auto 35.5 % (20-40); Mean Corpuscular HGB Conc 32.2 g/dl (31.0-35.0); Mean Corpuscular Hemoglobin 26.5 pg (27.0-33.0); Mean Corpuscular Volume 82.3 fL (80.0-98.0); Monocytes Absolute Auto 0.9 X10*3/uL (0.1-1.2); Monocytes Percent Auto 7.5 % (2-11); Neutrophils Absolute Auto 6.8 x10*3/uL (2.0-8.3); Neutrophils Percent Auto 54.9 % (45-73); Platelet Count 305 X10*3/uL (160-400); Red Blood Count 4.87 X10*6/uL (4.20-5.50); Red Cell Distribution Width 15.1 % (11.0-16.0); White Blood Count 12.4 X10*3/uL (4.8-10.8)
[2023-12-13 19:07] LABS: Appearance Urine Clear; Color Urine Yellow; Glucose Urine UA Negative (Negative); Leukocyte Esterase Urine Negative (Negative); Nitrite Urine Negative (Negative); Specific Gravity - Urine 1.025 (1.005-1.025); Urine Blood Negative (Negative); Urine Ketones Trace mg/dL (Negative); Urine Protein Negative (Neg-Trace)
--- NOTE | 2023-12-13 19:07 | MHC.EDTECH ---
PATIENT BLOOD DRAWN ,URINE SAMPLE COLLECTED AND RSV/COVID SWAB COLLECTED AND ALL SENT TO LAB .
[2023-12-13 19:09] LABS: Bacteria Urine None Seen (None Seen); Hyaline Casts Urine 0-2 /LPF (0-2); RBC Urine 0-2 /HPF (0-2); Squamous Epithelial Cell Urine 0-2 /HPF (0-2); WBC Urine 0-5 /HPF (0-5)
[2023-12-13 19:18] LABS: Alanine Aminotransferase 28 U/L (0-31); Albumin Level 3.9 g/dL (3.5-5.0); Alkaline Phosphatase 129 U/L (39-117); Anion Gap 13 (12-20); Aspartate Amino Transferase 28 U/L (5-31); Bilirubin Total 0.3 mg/dL (0.0-1.0); Blood Urea Nitrogen 11 mg/dL (9-16); Calcium 9.2 mg/dL (8.4-10.2); Carbon Dioxide 28 mmol/L (22-29); Chloride 102 mmol/L (96-108); Creatinine Clr Calc Pharmacy 129.5; Estimated Glomerular Filt Rate > 60; Glucose Random 100 mg/dL (60-115); Magnesium 1.9 mg/dL (1.6-2.6); Sodium 139 mmol/L (135-145); Total Protein 8.4 g/dL (6.5-8.0)
[2023-12-13 19:43] LABS: Influenza A PCR NEGATIVE (Negative); Influenza B PCR NEGATIVE (Negative); Resp Syncy Virus RNA Qual PCR NEGATIVE (Negative); SARS COV2 PCR INHOUSE NEGATIVE (Negative)
[2023-12-13 21:25] VITALS: BP 142/81; PULSE 83; RESP 18; TEMP 36.8; O2SAT 98
[2023-12-13] MEDS: Famotidine/PF 20 MG/2 ML VIAL IVPUSH (21:41)
[2023-12-13] MEDS: 0.9 % Sodium Chloride 1,000 ML 999 ML IV (21:42)
[2023-12-13 21:52] LABS: C Reactive Protein 4.02 mg/dL (< or = 0.50)
[2023-12-13 21:55] LABS: HCG Quantitative < 2 mIU/mL
[2023-12-13] MEDS: iohexoL 350 MG/ML 100 ML INFUS..BTL IV (22:18)
[2023-12-13 23:58] VITALS: BP 141/77; PULSE 96; RESP 18; TEMP 36.8; O2SAT 99
--- NOTE | 2023-12-13 23:59 | MHC.EDTECH ---
This tech took over care of patient at 2300,hourly rounds completed,patient is resting comfortably at this time call caro in reach
[2023-12-14 01:08] VITALS: BP 141/77; PULSE 96; RESP 18; TEMP 36.8; O2SAT 99
== END 2023-12-14 01:17 | disposition home or self-care (01) ==
PROVIDERS: Nurse Practitioner Family; Emergency Provider Emergency Medicine
DX: R10.9 Unspecified abdominal pain (principal); Z11.52 Encounter for screening for COVID-19; Z20.828 Contact with and (suspected) exposure to other viral communicable diseases
CPT/HCPCS: 0241U; 36415; 74177; 80053; 81001; 83735; 84702; 85025; 86140; 96361; 96374; 99284; Q9967

== ENCOUNTER → 2023-12-17 10:37 | Outpatient (BNVA) | payer OTHER, SELFPAY | PROVIDERS: Visit Provider Surgery ==

== ENCOUNTER 2024-02-17 16:07 | Emergency (ER) | payer OTHER, SELFPAY ==
[2024-02-17 16:19] VITALS: BP 149/84; PULSE 97; RESP 20; TEMP 36.6; O2SAT 99; BMI 44.6
--- NOTE | 2024-02-17 16:21 | ED_ITS ---
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 She denies any drainage, increased pain or other complications. complaint: suture removal Onset (ago): day(s) Location: left and upper extremity Treatments prior to arrival: none Related Data Home Medications ?Medication ?Instructions ?Recorded ?Confirmed ibuprofen 200 mg tablet (Advil) 200 mg PO Q6H PRN 01/30/21 10/02/22 Previous Rx's ?Medication ?Instructions ?Recorded cholecalciferol (vitamin D3) 125 125 mcg PO DAILY #90 caps 10/01/22 mcg (5,000 unit) capsule ferrous sulfate 324 mg (65 mg 324 mg PO DAILY #90 tabs 10/01/22 iron) tablet,delayed release thiamine HCl (vitamin B1) 100 mg 100 mg PO DAILY #90 tabs 10/08/22 tablet vitamin A palmitate 3,000 mcg 10,000 unit PO DAILY #90 caps 10/08/22 (10,000 unit) capsule zinc gluconate 10 mg lozenges 10 mg PO DAILY #100 ea 10/08/22 azithromycin 250 mg tablet 250 mg PO DAILY 4 days #4 tabs 12/15/22 omeprazole 40 mg capsule,delayed 40 mg PO DAILY #30 caps 12/14/23 release Allergies Allergy/AdvReac Type Severity Reaction Status Date / Time Penicillins Allergy Severe Anaphylaxis Verified 02/17/24 16:22 Review of Systems Review of Systems: As per HPI Yes all other systems are reviewed and are negative Constitutional: Constitutional: Reports as per HPI [facility] Past Medical History Medical History BMI 40.0-44.9, adult Morbid obesity Vitamin A deficiency Vitamin B12 deficiency Vitamin D deficiency Surgical History Hx of section Family History Family History Mother No problems noted. Father No problems noted. Sister No problems noted. Sister No problems noted. Son No problems noted. Son No problems noted. Daughter No problems noted. Social History Social History Alcohol intake: former Patient Tobacco Use Status: Never used Tobacco Physical Exam ED Vital Signs: Vital signs have been reviewed and appear to be correct. Blood pressure normal. Heart rate normal. Respiratory rate normal. Temperature normal. Oxygen saturation normal. Const General: cooperative, healthy appearing and no acute distress Orientation/consciousness: oriented to person, oriented to place, oriented to time and patient oriented x3 Limitations: no limitations HENMT Head: Yes normocephalic and Yes atraumatic Ears: external ears normal General nose exam: Normal external nose present Face and sinus: Yes face symmetric Mouth: oropharynx normal and moist mucous membranes Throat: Yes uvula midline Eyes Pupils: Equal, round and reactive pupils present Neck Neck: Yes normal visual inspection and Yes supple Resp Effort & Inspection: normal respiratory effort and able to speak in complete sentences Auscultation: clear to auscultation bilaterally Cardio Rate: regular rate Rhythm: regular rhythm Heart sounds: S1 normal heart sound present and S2 normal heart sound present Skin General skin exam: elasticity normal and turgor normal Neuro General: oriented to person, oriented to place, oriented to time, patient oriented x3, moves all extremities, no focal motor deficits and CN's II-XI intact bilaterally Cranial nerves: Yes Equal, round and reactive pupils present Cognition (Neuro): normal cognition Extrem General: Yes full ROM, Yes no pedal edema and Yes no calf tenderness Left upper extremity: hand (5 sutures to palmar aspect of 3rd finger, wound appears well-healing) Details: normal capillary refill, neuromotor exam normal, neurosensory exam normal and normal ROM of fingers Psych Mental Status: mental status grossly normal Affect: normal affect Thought process: Normal thought process present Medical Decision Making Medical Decision Making MDM Narrative: Patient is a 28-year-old English-speaking female presenting to the emergency department for removal of sutures placed to left 3rd finger at [facility] on 02/05. On exam patient is awake, A+Ox3, VS WNL, afebrile, normal neurological exam without focal deficits, physical exam findings as above. Given reported symptoms and physical exam findings, initial differential includes suture removal. #5 sutures removed from left 3rd finger without difficulty with success, wound appears well-healing. Advised patient to continue keeping the area covered with Band-Aid until fully healed and to avoid submerging in water. Return precautions discussed. Patient advised to assess wound daily. Patient verbalized understanding of and agreement with plan. Differential Diagnosis Differential Diagnoses: The differential diagnosis associated with the presentation includes suture removal, impaired wound healing, cellulitis External Record Review External record reviewed: Inpatient record, Office record and Outpatient record Discharge Plan Discharge Clinical Impression: Encounter for removal of sutures Patient Disposition: Home, Self-Care Instructions: Stitches Removal (ED) Additional Instructions: You were seen in the emergency department today for suture removal. Your wound appears to be healing well. Please keep the area surrounding the wound clean and dry and cover with Band-Aid until fully healed. Do not submerge in water until fully healed. Please continue to assess the wound daily. Keep the area out of direct sunlight for the next 6 months to help prevent scarring. If you develop fever, redness, swelling at the site of your laceration, or thick yellow drainage please come back to the ER for a wound check. Prescriptions: No Action cholecalciferol (vitamin D3) 125 mcg (5,000 unit) capsule 125 mcg PO DAILY Qty: 90 1RF ferrous sulfate 324 mg (65 mg iron) tablet,delayed release (DR/EC) 324 mg PO DAILY Qty: 90 2RF thiamine HCl (vitamin B1) 100 mg tablet 100 mg PO DAILY Qty: 90 0RF vitamin A palmitate 10,000 unit capsule 10,000 unit PO DAILY Qty: 90 0RF zinc gluconate 10 mg lozenge 10 mg PO DAILY Qty: 100 0RF azithromycin 250 mg tablet 250 mg PO DAILY 4 Days Qty: 4 0RF Rx Instructions: start on day 2 of therapy omeprazole 40 mg capsule,delayed release(DR/EC) 40 mg PO DAILY Qty: 30 0RF ibuprofen [Advil] 200 mg tablet 200 mg PO Q6H PRN Print Language: English
[2024-02-17 16:54] VITALS: BP 149/84; PULSE 97; RESP 20; TEMP 36.6; O2SAT 99
== END 2024-02-17 16:55 | disposition home or self-care (01) ==
PROVIDERS: Emergency Provider Emergency Medicine
DX: Z48.02 Encounter for removal of sutures (principal)
CPT/HCPCS: 99282

== ENCOUNTER 2024-03-12 08:05 | Outpatient (AMB) | payer OTHER, SELFPAY ==
[2024-03-12 18:56] VITALS: BMI 44.3
--- NOTE | 2024-03-12 18:56 | A.OFFVIS_ITS ---
VS Expanded 03/12/24 18:56 Height 5 ft 5 in Weight 266 lb 6 oz BMI 44.3 Body Fat % 37.4 Body Fat Mass 99.6 Fat Free Mass 138.6 Visceral Fat Rating 13 Body Water Mass 99.6 Basal Metabolic Rate/Score 2,004 Intake Visit Reasons: TV Re-Est SWL BMI 44.3 *INTEREPRETER* SEE COMMENTS Allergies Penicillins Allergy (Severe, Verified 03/12/24 18:58) Anaphylaxis Medication List - Last Reconciled 03/12/24 by Chester Bateman MD ibuprofen (Advil) 200 mg PO Q6H PRN omeprazole 40 mg PO DAILY HPI HPI TV Re-Est SWL BMI 44.3 *INTEREPRETER* SEE COMMENTS: Details: Start time: 7pm, End time: 7.45pm ?I spent 40 minutes speaking with the patient on the phone plus an additional 5 minutes reviewing and updating records for a total of 45 minutes HPI Comments Details: Previous weight loss efforts: [facility] Wakes up: 7am, Sleeps: 11pm Breakfast: skips Lunch: yes Dinner: yes Snacks: fruits in between lunch and dinner Exercise: has a home treadmill Fluids: Coffee/Tea/Soda: none, juice: no, ETOH: none PFSH Medical History (Updated 03/12/24 @ 18:56 by Chester Bateman MD) GERD (gastroesophageal reflux disease) Vitamin B12 deficiency Vitamin A deficiency Vitamin D deficiency BMI 40.0-44.9, adult Morbid obesity Surgical History Hx of section Family History Mother No problems noted. Father No problems noted. Sister No problems noted. Sister No problems noted. Son No problems noted. Son No problems noted. Daughter No problems noted. Social History Alcohol intake: former Patient Tobacco Use Status: Never used Tobacco Physical Exam Vital Signs: BMI result Body Mass Index 44.3 Telehealth Telehealth Telehealth Platform: Telephone Location of provider rendering services: practice address Location of patient: address on file Patient Identification confirmed using: Name, : Yes Telehealth method: voice only Patient verbally consented to treatment: Yes Patient verbally consented to billing insurance company: Yes Patient informed of any privacy concerns related to visit: Yes Minutes spent on Phone/Video with Pt.: 45 Assessment & Plan Assessment & Plan (1) Morbid obesity: Code(s): E66.01 - Morbid (severe) obesity due to excess calories Category: Medical Plan: 1.? Plan for lap sleeve gastrectomy. If diaphragmatic or ventral hernias are present at time of surgery, these will be repaired laparoscopically as well. Risks and complications include possible conversion to an open procedure, anastomotic leak, bleeding requiring transfusion, small bowel obstruction, , DVT and pulmonary embolism, cardiac, or pulmonary complications, as halfway complications such as anastomotic ulcer, insufficient weight loss and vitamin deficiencies. I emphasized the importance of close follow-up, adherence to instructions and good communication. 2. You will receive a link of our software dionne to generate an individualized nutritional and exercise plan specific for you. Please send me a screenshot of the plans you will generate Meal to include lean meat (beef, fish, pork, turkey, chicken), or macedonian yogurt, or egg whites, or beans with a salad with olive oil and fruits (berries, pears, apples, kiwi). Avoid salt, breads, potatoes, rice, pasta, desserts. ?3. If you choose shakes, each shake would be drunk slowly, like coffee in a period of 2 hours. ?4. If you choose bars, cut each bar in 4 pieces and eat each piece in 30min ?to make each bar last 2 hours. ?5. I emphasized the importance of measuring accurately the food portion and measure it when serving the food in plate ?6. The meal portions include a specific number of forks of meat and salad. You always eat the meat portion but you can replace up to half of salad/vegetables portion with rice, potatoes or pasta, or a fruit ?if you like. The less you do it the better weight loss will be. ?7. One full-size fork is what it can be scooped on the fork without falling aside and not what can be bit with the fork. Use regular forks like those you find in a typical restaurant. ?8.? Please send me weight measurements as soon as possible and then once a week. Always include your diet and exercise plan. 9. The best choice would be to purchase a stationary bike, elliptical or treadmill at home that can track calories. Let me know if you do so I can give you an exercise plan. ?10.?It is important of avoiding and for at least 18 months postoperatively and has been discussed at the infosession. ?11. Goal is to lose at least 1.5-2lbs per week ?12. Goal to lose 10% of your weight before surgery, which is about 26lbs. Ultimate weight goal: 240lbs before surgery 13. Please follow the diet plan exactly without any change. If you don't like something about the plan or you feel hungry you need to communicate with me so I can help you revise the plan. You should not change the plan yourself. 14. To be scheduled for EGD due to history of GERD. The possibility of biopsies was discussed. Patient needs to avoid use of NSAIDs and aspirin for 1 week prior to EGD. Risks of perforation and? bleeding was discussed with the patient. This will be an outpatient procedure with IV sedation. Orders: Orders Insulin Today E66.01 - Morbid (severe) obesity due to excess calories, K21.9 - Gastro-esophageal reflux disease without esophagitis Complete Blood Count Auto Diff Today E66.01 - Morbid (severe) obesity due to excess calories, K21.9 - Gastro-esophageal reflux disease without esophagitis Vitamin B12 and Folate Today E66.01 - Morbid (severe) obesity due to excess calories, K21.9 - Gastro-esophageal reflux disease without esophagitis Zinc Today E66.01 - Morbid (severe) obesity due to excess calories, K21.9 - Gas tro-esophageal reflux disease without esophagitis Vitamin B1 Today E66.01 - Morbid (severe) obesity due to excess calories, K21.9 - Gastro-esophageal reflux disease without esophagitis Vitamin A Today E66.01 - Morbid (severe) obesity due to excess calories, K21.9 - Gastro-esophageal reflux disease without esophagitis Ferritin Today E66.01 - Morbid (severe) obesity due to excess calories, K21.9 - Gastro-esophageal reflux disease without esophagitis Vitamin D 25-OH Total Today E66.01 - Morbid (severe) obesity due to excess calories, K21.9 - Gastro-esophageal reflux disease without esophagitis US abdomen comp w elastography Today E66.01 - Morbid (severe) obesity due to excess calories, K21.9 - Gastro-esophageal reflux disease without esophagitis XR chest 2V Today E66.01 - Morbid (severe) obesity due to excess calories, K21.9 - Gastro-esophageal reflux disease without esophagitis ECG 12 lead EKG Today E66.01 - Morbid (severe) obesity due to excess calories, K21.9 - Gastro-esophageal reflux disease without esophagitis Hemoglobin A1c Today E66.01 - Morbid (severe) obesity due to excess calories, K21.9 - Gastro-esophageal reflux disease without esophagitis H Pylori Breath Test Today E66.01 - Morbid (severe) obesity due to excess calories, K21.9 - Gastro-esophageal reflux disease without esophagitis Lipid Panel Today E66.01 - Morbid (severe) obesity due to excess calories, K21.9 - Gastro-esophageal reflux disease without esophagitis IRON PROFILE Today E66.01 - Morbid (severe) obesity due to excess calories, K21.9 - Gastro-esophageal reflux disease without esophagitis Comprehensive Met. Panel Today E66.01 - Morbid (severe) obesity due to excess calories, K21.9 - Gastro-esophageal reflux disease without esophagitis C Reactive Protein Today E66.01 - Morbid (severe) obesity due to excess calories, K21.9 - Gastro-esophageal reflux disease without esophagitis TSH reflex Free T4 Today E66.01 - Morbid (severe) obesity due to excess calories, K21.9 - Gastro-esophageal reflux disease without esophagitis Referrals Behavioral Health Referral E66.01 - Morbid (severe) obesity due to excess calories, K21.9 - Gastro-esophageal reflux disease without esophagitis Nutrition/Dietitian Referral E66.01 - Morbid (severe) obesity due to excess calories, K21.9 - Gastro-esophageal reflux disease without esophagitis
== END 2024-03-12 22:18 | disposition home or self-care (01) ==
LOC: HO.HBS 08:05
PROVIDERS: Visit Provider Surgery
DX: E66.01 Morbid (severe) obesity due to excess calories (principal)
CPT/HCPCS: 99204

== ENCOUNTER → 2024-03-12 08:05 | Outpatient (BNVA) | payer OTHER, SELFPAY | PROVIDERS: Visit Provider Surgery ==

== ENCOUNTER 2024-04-29 11:23 | Outpatient (AMB) | payer OTHER, SELFPAY ==
--- NOTE | 2024-04-29 11:23 | MHC.WMTHER ---
Intake Intake Visit Reasons: (TV) BH Intake Allergies Penicillins Allergy (Severe, Verified 03/12/24 18:58) Anaphylaxis [facility] Medical History (Updated 03/12/24 @ 18:56 by Chester Bateman MD) GERD (gastroesophageal reflux disease) Vitamin B12 deficiency Vitamin A deficiency Vitamin D deficiency BMI 40.0-44.9, adult Morbid obesity Surgical History Hx of section Family History Mother No problems noted. Father No problems noted. Sister No problems noted. Sister No problems noted. Son No problems noted. Son No problems noted. Daughter No problems noted. Social History Alcohol intake: former Patient Tobacco Use Status: Never used Tobacco Behavioral Health Assessment Weight Management Therapy Therapy Notes Details assessment for Weight management program. PT did WMP in 2020, however she discontinued after previous provider who was treating her left the practice. Tis time her children are older and she feels is a better time as she can dedicate more to what she thinks it takes to loss weight. During today's encounter we couldn't finish the assessment, as client did not complete the questionaries, and she was very confused about meal/excercise plan and needed some guidance understanding the program, her commitment and our expectations. The next visit we will continue assessment but this client will need ongoing support with emotional eating challenges. PT not cleared today. Presenting Concerns Referral Source Dr. Fagan at [facility]. Reason for referral Completion of behavioral health assessment as part of process for weight-loss surgery. Precipitating Event Obesity, more weight gain after last and struggles to control urges for food. Living Situation Current Living Situation Rent At risk of losing current housing? Yes (Court case as she's behind in rent.) Satisfied with current living situation? Yes Comments PT lives with 3 children and their family dog. Food/Weight/Diet Expectations of change -Initial goal to lose 10% of your weight before surgery, which is about 26lbs. Ultimate weight goal: 240lbs before surgery -PT wants to be at a healthy weight but will be happy at 200Lbs. She is not sure about what a healthy weight is for her. . History/Relationship with food PT states she doesn't have a good relationship with food, she never feels full after eating and tends to stress-eat. She is not following the meal plan as instructed as shakes don't make her feel full so somedays she will replace a shake for food and uses bars as snack. Example of meals before starting program Breakfast: usually skips, and eats around 11am, corn flakes, eggs and bread. Lunch: skips or [employer], a sandwich, nuggets. Dinner: at 6pm. Snacks: rice or pasta with any type of meat History/Relationship with weight Current weight 270Lbs Assessment & Plan Assessment & Plan (1) Adjustment disorder: Code(s): F43.20 - Adjustment disorder, unspecified Qualifiers: Adjustment disorder type: unspecified type Qualified Code(s): F43.20 - Adjustment disorder, unspecified Plan -PT is not cleared today. She will need a second session to complete the BH assessment. -PT also needs support with emotional eating and with habit change, as she is not following what provider advised. -She was reminded to send screenshoot of meal plan/exercise plan to dr Ye and modify the meal plan or ask for support to provider because she is hungry with current plan. -PT will be provided with the BH questionnaires Tuesday 05/01 when she comes for her F/up dionne with MB- in person as there is nothing on her file. -Next dionne: 2-4 weeks. Telehealth Telehealth Telehealth Platform: [employer] Location of provider rendering services: other (Home office. [place], [place]) Location of patient: address on file Patient Identification confirmed using: Name, : Yes Telehealth method: video Patient verbally consented to treatment: Yes Patient verbally consented to billing insurance company: Yes Patient informed of any privacy concerns related to visit: No Minutes spent on Phone/Video with Pt.: 45 (11:15am -12:00pm) Coding Level of Care Code New Pt Tele Psy Diag Eval (71017) Patient Type New Diagnoses Adjustment disorder, unspecified type F43.20 Adjustment disorder type: unspecified type Time Spent (min) 45 Comment 11:15am - 12:00pm.
== END 2024-04-29 12:08 | disposition home or self-care (01) ==
LOC: HO.HBST 11:23
PROVIDERS: Visit Provider Counselor Mental Health
DX: F43.20 Adjustment disorder, unspecified (principal)
CPT/HCPCS: 90791

== ENCOUNTER → 2024-04-29 11:23 | Outpatient (BNVA) | payer OTHER, SELFPAY | PROVIDERS: Visit Provider Counselor Mental Health ==